=== PATIENT | male | born 1985 | race Caucasian/White ===

== ENCOUNTER 2024-10-28 15:06 | Emergency (ER) | payer BC ==
--- NOTE | 2024-10-28 15:47 | RAD REPORT ---
EXAM: CT brain without contrast HISTORY: Seizure COMPARISON: None TECHNIQUE: Multiple contiguous axial images were obtained and a CT of the brain without contrast.. Sagittal and coronal reconstruction performed. Automated exposure control, adjustment of the mA and/or kV according to patient size, and/or iterative reconstruction. Unless otherwise specified, incidental f indings do not require dedicated imaging follow-up FINDINGS: 3 cm low-density area right frontal lobe. It contains small area of increased density Ventricles are normal caliber No extra-axial fluid collection noted No significant hypodensity within the brain No fluid within the visualized sinuses or mastoids noted. IMPRESSION: 3 cm low-density area right frontal lobe could represent mass or infarction. It may contain a small a mount of blood. MRI of the brain with contrast recommended. Thelma Mcmahon of the emergency room was notified 3:41 PM September 28, 2024
[2024-10-28] MEDS ORDERED: LORazepam 2 MG/ML VIAL ONE (15:54)
[2024-10-28] MEDS ORDERED: NA CHLORIDE 0.9% 1,000 ML ONE ×2 (15:55→17:03)
[2024-10-28] MEDS ORDERED: LEVETIRACETAM 500 MG/5 ML VIAL IV ONE (15:55)
[2024-10-28] MEDS ORDERED: NA CHLORIDE 0.9% 100 ML ONE (15:55)
[2024-10-28 16:02] LABS: Absolute Eosinophils 0.2 K/uL (0-0.5); Absolute Monocytes 0.9 K/uL (0.1-1.3); Absolute Neutrophil 10.6 K/uL (1.8-8.0); Basophils % 0.3 % (0-1.3); Eosinophils % 1.6 % (0-4.4); Hematocrit 44.5 % (39.6-49.0); Hemoglobin 14.7 g/dL (13.6-17.9); Lymphocytes % 7.7 % (15.3-44.8); MCV 87.9 fL (80-100); MPV 8.4 fL (7.6-11.3); Neutrophils % 83.4 % (41.7-73.7); Nucleated RBC Absolute Count 0.1 (0-0); Nucleated Red Blood Cells % 0.8 % (0-0); Platelets 266 thou/uL (152-406); RBC Red Blood Cell Count 5.06 M/uL (4.33-5.43); Red Cell Distribution Width 13.7 % (12.1-15.2)
[2024-10-28 16:03] LABS: Urine Bilirubin NEGATIVE (Negative); Urine Blood Negative (Negative); Urine Clarity Clear (Clear); Urine Color Colorless (Yellow); Urine Glucose NEGATIVE (Negative); Urine Ketones NEGATIVE (Negative); Urine Microscopic Reflex YN NO UMIC; Urine Nitrite NEGATIVE (Negative); Urine Protein NEGATIVE (Negative); Urine Urobilinogen Normal (Normal)
[2024-10-28 16:08] LABS: PT Prothrombin Time 11.5 SECONDS (9.4-12.5); PTT, Activated Partial Thromb 27.2 SECONDS (24.3-36.9); Protime INR 1.03
[2024-10-28 16:10] LABS: Blood Morphology Comment NOT SEEN (NOT SEEN); Platelet Estimate ADEQ; White Blood Cell Scan OK (OK)
[2024-10-28 16:10] LABS: Barbiturates NEGATIVE (NEGATIVE); Benzodiazepines NEGATIVE (NEGATIVE); Cocaine NEGATIVE (NEGATIVE); METHAMPHETAM NEGATIVE (NEGATIVE); Methadone NEGATIVE (NEGATIVE); Opiates NEGATIVE (NEGATIVE); Phencyclidine NEGATIVE (NEGATIVE); THC Cannibis NEGATIVE (NEGATIVE)
--- NOTE | 2024-10-28 16:11 | EDPHYS ---
Physician Documentation [facility] Name: Ned Hebert Age: 39 yrs Sex: Male : 1985 Arrival Date: 10/28/2024 Time: 15:06 Bed 17 Private MD: ED Physician Wilton Hanson HPI: 10/28 15:51 This 39 yrs old Male presents to ER via EMS with complaints of Probable jody Seizure. 15:51 The patient presents after having a single isolated seizure, that lasted 1 minute(s). jody Character of seizure(s): Loss of consciousness: the patient experienced loss of consciousness, brief, Motor activity: generalized, shaking all over, Incontinence: none, Apnea: the patient did not experience apnea, Circulation: the patient did not experience evidence of pulse disturbance. Seizure onset: just prior to arrival. Context: the seizure(s) was witnessed, by family, son. Seizure Hx: the patient has no previous seizure history. Associated injury: The patient did not suffer any apparent associated injury. EMS care: none. Current symptoms: Currently, the patient is not experiencing any symptoms. The patient has not experienced similar symptoms in the past. Historical: - Allergies: 15:15 No Known Allergies; me1 - Home Meds: 15:15 None [Active]; me1 - PMHx: 15:15 None; me1 - PSHx: 15:15 None; me1 - Immunization history:: Adult Immunizations up to date. - Infectious Disease History:: Denies. - Social history:: Smoking status: Patient denies any tobacco usage or history of. ROS: 15:52 Constitutional: Negative for fever, chills, and weight loss, Eyes: Negative for injury, jody pain, redness, and discharge, ENT: Negative for injury, pain, and discharge, Neck: Negative for injury, pain, and swelling, Cardiovascular: Negative for chest pain, palpitations, and edema, Respiratory: Negative for shortness of breath, cough, wheezing, and pleuritic chest pain, Abdomen/GI: Negative for abdominal pain, nausea, vomiting, diarrhea, and constipation, Back: Negative for injury and pain, : Negative for injury, bleeding, discharge, and swelling, MS/Extremity: Negative for injury and deformity, Skin: Negative for injury, rash, and discoloration, Psych: Negative for depression, anxiety, suicide ideation, homicidal ideation, and hallucinations, Allergy/Immunology: Negative for hives, rash, and allergies, Endocrine: Negative for neck swelling, polydipsia, polyuria, polyphagia, and marked weight changes, Hematologic/Lymphatic: Negative for swollen nodes, abnormal bleeding, and unusual bruising, 15:52 Neuro: Positive for altered mental status, dizziness, seizure activity, POST ICTAL 25 MIN, Exam: 15:52 Constitutional: This is a well developed, well nourished patient who is awake, alert, jody and in no acute distress. Head/Face: Normocephalic, atraumatic. Eyes: Pupils equal round and reactive to light, extra-ocular motions intact. Lids and lashes normal. Conjunctiva and sclera are non-icteric and not injected. Cornea within normal limits. Periorbital areas with no swelling, redness, or edema. ENT: Nares patent. No nasal discharge, no septal abnormalities noted. Tympanic membranes are normal and external auditory canals are clear. Oropharynx with no redness, swelling, or masses, exudates, or evidence of obstruction, uvula midline. Mucous membranes moist. Neck: Trachea midline, no thyromegaly or masses palpated, and no cervical lymphadenopathy. Supple, full range of motion without nuchal rigidity, or vertebral point tenderness. No Meningismus. Chest/axilla: Normal chest wall appearance and motion. Nontender with no deformity. No lesions are appreciated. Cardiovascular: Regular rate and rhythm with a normal S1 and S2. No gallops, murmurs, or rubs. Normal PMI, no JVD. No pulse deficits. Respiratory: Lungs have equal breath sounds bilaterally, clear to auscultation and percussion. No rales, rhonchi or wheezes noted. No increased work of breathing, no retractions or nasal flaring. Abdomen/GI: Soft, non-tender, with normal bowel sounds. No distension or tympany. No guarding or rebound. No evidence of tenderness throughout. Back: No spinal tenderness. No costovertebral tenderness. Full range of motion. Skin: Warm, dry with normal turgor. Normal color with no rashes, no lesions, and no evidence of cellulitis. MS/ Extremity: Pulses equal, no cyanosis. Neurovascular intact. Full, normal range of motion., bilateral aka Neuro: Awake and alert, GCS 15, oriented to person, place, time, and situation. Cranial nerves II-XII grossly intact. Motor strength 5/5 in all extremities. Sensory grossly intact. Cerebellar exam normal. Normal gait. Psych: Awake, alert, with orientation to person, place and time. Behavior, mood, and affect are within normal limits. 15:52 ECG was reviewed by the Attending Physician. 16:24 ECG was reviewed by the Attending Physician. [facility] Vital Signs: 15:10 BP 137 / 90; Pulse 82; Resp 16; Temp 98.4; Pulse Ox 100% on R/A; me1 16:00 BP 147 / 83; Pulse 89; Resp 19; Pulse Ox 98% ; me1 17:00 BP 152 / 89; Pulse 104; Resp 18; Pulse Ox 98% ; me1 18:00 BP 158 / 83; Pulse 97; Resp 21; Temp 98.4; Pulse Ox 98% ; me1 [place] Coma Score: 15:15 Eye Response: spontaneous(4). Motor Response: obeys commands(6). Verbal Response: me1 oriented(5). Total: 15. MDM: 15:12 Medical Screening Exam initiated jody 16:18 Differential diagnosis: cerebral vascular accident, cardiac arrhythmia, seizure, TIA. [facility] Data reviewed: vital signs, nurses notes, lab test result(s), EKG, radiologic studies, CT scan, plain films. Consideration of Admission/Observation Escalation of care including admission/observation considered. I considered the following discharge prescriptions or medication management in the emergency department Medications were administered in the Emergency Department. See MAR. Independent interpretation of the following test(s) in the Emergency Department EKG: See my EKG interpretation above. Test considered but Not performed: MRI: MRI NOT DONE. Historians other than the Patient: EMS: EMS WELL INFORMED. Family Member: , DAD AND SON. Care significantly affected by the following chronic conditions: NONE , DAILY ETOH. Counseling: I had a detailed discussion with the patient and/or guardian regarding the historical points, exam findings, and any diagnostic results supporting the discharge/admit diagnosis, lab results, radiology results, the need to transfer to another facility, for higher level of care, [facility] does not immediately have the required specialist. 10/28 15:14 Order name: Acetaminophen; Complete Time: 16:39 [facility] 10/28 15:14 Order name: Basic Metabolic Panel; Complete Time: 16:39 [facility] 10/28 15:14 Order name: CBC with Diff; Complete Time: 16:18 [facility] 10/28 15:14 Order name: ETOH Level; Complete Time: 16:18 [facility] 10/28 15:14 Order name: Hepatic Function; Complete Time: 16:39 [facility] 10/28 15:14 Order name: PT-INR; Complete Time: 16:18 [facility] 10/28 15:14 Order name: Ptt, Activated; Complete Time: 16:18 [facility] 10/28 15:14 Order name: Salicylate; Complete Time: 16:39 [facility] 10/28 15:14 Order name: Urinalysis w/ reflexes; Complete Time: 16:18 [facility] 10/28 15:14 Order name: Urine Drug Screen; Complete Time: 16:18 [facility] 10/28 15:56 Order name: SARS-COV-2 Antigen Rapid; Complete Time: 16:57 bp 10/28 15:56 Order name: Flu; Complete Time: 16:57 bp 10/28 16:10 Order name: CBC Smear Scan; Complete Time: 16:18 EDMS 10/28 15:14 Order name: CT Head Brain wo Cont; Complete Time: 16:18 [facility] 10/28 15:14 Order name: EKG - Nurse/Tech; Complete Time: 17:31 [facility] 10/28 15:14 Order name: IV Saline Lock; Complete Time: 15:50 [facility] 10/28 15:14 Order name: Labs collected and sent; Complete Time: 15:50 [facility] 10/28 15:14 Order name: Suicide Screening ([place]); Complete Time: 15:50 [facility] 10/28 15:14 Order name: Seizure Precautions; Complete Time: 15:50 [facility] EC:24 Rate is 93 beats/min. Rhythm is regular. QRS [place] is Normal. MI interval is normal. QRS jody interval is normal. QT interval is normal. No Q waves. T waves are Normal. No ST changes noted. Clinical impression: Normal ECG and No evidence of ischemia. Interpreted by me. Reviewed by me. Administered Medications: 16:04 Drug: NS 0.9% IV 1000 ml IV at 1000 ml once; to be given as a bolus over 60 minutes me1 Route: IV; Rate: 1000 ml; Site: right antecubital; 17:12 Follow up: Response: No adverse reaction; IV Status: Completed infusion; IV Intake: me1 1000ml 16:04 Drug: Ativan IVP 2 mg IVP once Route: IVP; Site: right antecubital; me1 16:17 Follow up: Response: No adverse reaction me1 16:04 Drug: Keppra IV 1000 mg IV at per protocol once Route: IV; Rate: per protocol; Site: [facility] right antecubital; 16:17 Follow up: IV Status: Completed infusion me1 16:04 Drug: Keppra IV 1000 mg IV at per protocol once Route: IV; Rate: per protocol; Site: [facility] right antecubital; 16:16 Follow up: IV Status: Completed infusion me1 17:11 Drug: Banana Bag - (Multivitamin IV 1 amp, NS 0.9% IV 1000 ml, Thiamine IV 100 mg, me1 foLIC Acid IVPB 1 mg) IV at 125 ml/hr once Route: IV; Rate: 125 ml/hr; Site: right antecubital; 18:10 Follow up: IV Status: Completed infusion; Infusion continued upon transfer me1 17:12 Drug: Thiamine IV 100 mg IV at per protocol once Route: IV; Rate: per protocol; Site: [facility] right antecubital; 17:15 Follow up: Response: No adverse reaction; IV Status: Completed infusion me1 Disposition Summary: 10/28/24 16:10 Transfer Ordered Notes: Transfer Location: [facility] jody Reason: Higher level of care jody Condition: Fair jody Problem: new jody Symptoms: have improved jody Accepting Physician: to [facility](10/28/24 18:10) me1 Diagnosis - Abnormal findings on diagnostic imaging of skull and head, not elsewhere classified jody - 3 cm LOW DENSITY MASS/ INFARCTION RIGHT FRONTAL LOBE - Other seizures - NEW ONSET TONIC - CLONIC jody - Alcohol abuse, uncomplicated jody Forms: - Medication Reconciliation Form jody - SBAR form jody Signatures: Dispatcher [employer] EDWilton Arevalo MD MD cha Eddleman, Michelle, RN RN me1 Corrections: (The following items were deleted from the chart) 15:15 15:15 ACETAMINOPHEN+C.LAB.BRZ ordered. EDMS EDMS 15:15 15:15 BASIC METABOLIC PANEL+C.LAB.BRZ ordered. EDMS EDMS 15:15 15:15 CBC+H.LAB.BRZ ordered. EDMS EDMS 15:15 15:15 ETHANOL+C.LAB.BRZ ordered. EDMS EDMS 15:15 15:15 HEPATIC FUNCTION+C.LAB.BRZ ordered. EDMS EDMS 15:15 15:15 PROTIME (+INR)+COAG.LAB.BRZ ordered. EDMS EDMS 15:15 15:15 PTT, ACTIVATED+COAG.LAB.BRZ ordered. EDMS EDMS 15:15 15:15 SALICYLATE+C.LAB.BRZ ordered. EDMS EDMS 15:15 15:15 Urinalysis+U.LAB.BRZ ordered. EDMS EDMS 15:15 15:15 URINE DRUG SCREEN+UC.LAB.BRZ ordered. EDMS EDMS 15:15 15:15 Head Brain Wo Cont+CT.RAD.BRZ ordered. EDMS EDMS 16:21 16:10 to [facility] jody jody 18:10 16:21 to [facility] jody me1
--- NOTE | 2024-10-28 16:11 | ER ---
Nurse's Notes [facility] Name: Ned Hebert Age: 39 yrs Sex: Male : 1985 Arrival Date: 10/28/2024 Time: 15:06 Bed 17 Private MD: Diagnosis: Abnormal findings on diagnostic imaging of skull and head, not elsewhere classified-3 cm LOW DENSITY MASS/ INFARCTION RIGHT FRONTAL LOBE;Other seizures-NEW ONSET TONIC - CLONIC;Alcohol abuse, uncomplicated Presentation: 10/28 15:10 Chief complaint: EMS states: toned out for seizure. Patient was sitting and eating at a [facility] restaurant when he began to seize, he did lean forward, hitting his bottom lip on the table. Was eased to the ground without fall. Post-ictal for about 30-40 minutes per EMS. Patient did take paxlovid x 3 doses about a week ago because his had covid. No seizure history. Coronavirus screen: Vaccine status: Patient reports receiving the 1st dose of the Covid vaccine. Ebola Screen: No symptoms or risks identified at this time. Initial Sepsis Screen: Does the patient meet any 2 criteria? No. Patient's initial sepsis screen is negative. Does the patient have a suspected source of infection? No. Patient's initial sepsis screen is negative. Risk Assessment: Do you want to hurt yourself or someone else? Patient reports no desire to harm self or others. Onset of symptoms was October 28, 2024 at 14:00. 15:10 Method Of Arrival: EMS: [place] [id number] 15:10 Acuity: GA 3 wv1 15:10 Care prior to arrival: Medication(s) given: LR 500 ml IV initiated. 20 GA, in the left wv1 wrist. Triage Assessment: 15:15 General: Appears comfortable, well groomed, well developed, well nourished, Behavior is me1 calm, cooperative, appropriate for age. Pain: Denies pain. EENT: No signs and/or symptoms were reported regarding the EENT system. Neuro: Level of Consciousness is awake, alert, obeys commands, Oriented to person, place, time, situation, Appropriate for age Seizure activity reported prior to arrival. Cardiovascular: Capillary refill < 3 seconds Patient's skin is warm and dry. Respiratory: Airway is patent Respiratory effort is even, unlabored, Respiratory pattern is regular, symmetrical. GI: No signs and/or symptoms were reported involving the gastrointestinal system. : No signs and/or symptoms were reported regarding the genitourinary system. Derm: Skin is intact, is healthy with good turgor, Skin is pink, warm \T\ dry. Musculoskeletal: No signs and/or symptoms reported regarding the musculoskeletal system. Historical: - Allergies: 15:15 No Known Allergies; me1 - Home Meds: 15:15 None [Active]; me1 - PMHx: 15:15 None; me1 - PSHx: 15:15 None; me1 - Immunization history:: Adult Immunizations up to date. - Infectious Disease History:: Denies. - Social history:: Smoking status: Patient denies any tobacco usage or history of. Screenin:16 [facility] ED Fall Risk Assessment (Adult) History of falling in the last 3 months, me1 including since admission No falls in past 3 months (0 pts) Confusion or Disorientation No (0 pts) Intoxicated or Sedated No (0 pts) Impaired Gait No (0 pts) Mobility Assist Device Used No (0 pt) Altered Elimination No (0 pt) Score/Fall Risk Level 0 - 2 = Low Risk Maintained a safe environment, Provided non-skid footwear, Hourly rounding (assess needs \T\ fall precautionary measures) done. Abuse screen: Denies threats or abuse. Nutritional screening: No deficits noted. Tuberculosis screening: No symptoms or risk factors identified. Assessment: 15:16 General: See triage assessment.. me1 Vital Signs: 15:10 BP 137 / 90; Pulse 82; Resp 16; Temp 98.4; Pulse Ox 100% on R/A; me1 16:00 BP 147 / 83; Pulse 89; Resp 19; Pulse Ox 98% ; me1 17:00 BP 152 / 89; Pulse 104; Resp 18; Pulse Ox 98% ; me1 18:00 BP 158 / 83; Pulse 97; Resp 21; Temp 98.4; Pulse Ox 98% ; me1 [place] Coma Score: 15:15 Eye Response: spontaneous(4). Motor Response: obeys commands(6). Verbal Response: me1 oriented(5). Total: 15. ED Course: 15:10 Patient arrived in ED. me1 15:12 Wilton Hanson MD is Attending Physician. [facility] 15:15 Triage completed. me1 15:15 Arm band placed on Patient placed in an exam room. me1 15:16 Patient has correct armband on for positive identification. Bed in low position. Call me1 light in reach. Side rails up X2. Seizure precautions initiated. Provided Education on: POC. Verbalized understanding.. 15:16 No provider procedures requiring assistance completed. Maintain EMS IV. Dressing me1 intact. Good blood return noted. Site clean \T\ dry. Gauge \T\ site: 20g L wrist. 15:26 CT Head Brain wo Cont In Process Unspecified. EDMS 15:28 Monalisa Evangelista, RN is Primary Nurse. me1 15:50 Acetaminophen Sent. me1 15:50 Basic Metabolic Panel Sent. me1 15:50 CBC with Diff Sent. me1 15:50 ETOH Level Sent. me1 15:50 Hepatic Function Sent. me1 15:50 PT-INR Sent. me1 15:50 Ptt, Activated Sent. me1 15:50 Salicylate Sent. me1 15:50 Urinalysis w/ reflexes Sent. me1 15:50 Urine Drug Screen Sent. me1 16:04 Initial lab(s) drawn, by wv, sent to lab. Inserted saline lock: 22 gauge in right wv1 antecubital area, using aseptic technique. 16:17 Flu Sent. me1 16:17 SARS-COV-2 Antigen Rapid Sent. me1 16:17 COVID swab sent to lab. Flu and/or RSV swab sent to lab. me1 17:00 received acceptance with Kobi [facility] for [facility] ([id number]) with accepting bc6 Dr. Teto Smart. 17:30 Patient transferred, IV remains in place. me1 17:31 EKG done, by ED staff, reviewed by Wilton Hanson MD. me1 17:34 mary with [facility] accepted transfer. 6 Administered Medications: 16:04 Drug: NS 0.9% IV 1000 ml IV at 1000 ml once; to be given as a bolus over 60 minutes me1 Route: IV; Rate: 1000 ml; Site: right antecubital; 17:12 Follow up: Response: No adverse reaction; IV Status: Completed infusion; IV Intake: me1 1000ml 16:04 Drug: Ativan IVP 2 mg IVP once Route: IVP; Site: right antecubital; me1 16:17 Follow up: Response: No adverse reaction me1 16:04 Drug: Keppra IV 1000 mg IV at per protocol once Route: IV; Rate: per protocol; Site: [facility] right antecubital; 16:17 Follow up: IV Status: Completed infusion me1 16:04 Drug: Keppra IV 1000 mg IV at per protocol once Route: IV; Rate: per protocol; Site: [facility] right antecubital; 16:16 Follow up: IV Status: Completed infusion me1 17:11 Drug: Banana Bag - (Multivitamin IV 1 amp, NS 0.9% IV 1000 ml, Thiamine IV 100 mg, me1 foLIC Acid IVPB 1 mg) IV at 125 ml/hr once Route: IV; Rate: 125 ml/hr; Site: right antecubital; 18:10 Follow up: IV Status: Completed infusion; Infusion continued upon transfer me1 17:12 Drug: Thiamine IV 100 mg IV at per protocol once Route: IV; Rate: per protocol; Site: [facility] right antecubital; 17:15 Follow up: Response: No adverse reaction; IV Status: Completed infusion me1 Medication: 15:16 VIS not applicable for this client. me1 Intake: 17:12 IV: 1000ml; Total: 1000ml. wv1 Outcome: 16:10 ER care complete, transfer ordered by MD. vera 17:30 Transferred by ground EMS to [facility], Note: Report given to obdulio Lovelace RN 17:30 Condition: stable 17:30 Instructed on the need for transfer, 18:10 Patient left the ED. wv1 Signatures: Dispatcher [employer] Wilton Moulton MD MD cha [place], Breana [facility] Monalisa Evangelista RN RN me1
[2024-10-28 16:21] LABS: ALT/SGPT 38 U/L (16-61); AST/SGOT 14 U/L (15-37); Albumin 3.5 g/dL (3.4-5.0); Alkaline Phosphatase 54 U/L (45-117); Anion Gap 9.9 mEq/L (5.0-15.0); BUN Blood Urea Nitrogen 16 mg/dL (7-18); Bicarbonate 26 mEq/L (21-32); Bilirubin Direct < 0.2 mg/dL (0-0.2); Bilirubin Indirect, Calculated 0.1 mg/dL (0.2-0.8); Bilirubin Total 0.3 mg/dL (0.2-1.0); Globulin 3.5 g/dL (2.3-3.5); Glomerular Filtration Rate 88 ml/min (=/>90); Glucose Level 88 mg/dL (74-106); Potassium 3.9 mEq/L (3.5-5.1); Sodium Level 136 mEq/L (136-145)
[2024-10-28 16:44] LABS: SARS-CoV-2 Antigen CONTROL BLUE LINE VIS/BG OK; SARS-CoV-2 Antigen Rapid Res Negative (Negative)
[2024-10-28] MEDS ORDERED: MULTIVITAMINS 10 ML VIAL (INJ) IV ONE (17:02)
[2024-10-28] MEDS ORDERED: THIAMINE 200 MG/2 ML INJ ONE (17:02)
[2024-10-28] MEDS ORDERED: FOLIC ACID 5 MG/ML VIAL ONE (17:03)
[2024-10-28 18:39] VITALS: TEMP 98.4
[2024-10-28 18:40] VITALS: O2SAT 98
[2024-10-28 18:44] VITALS: BP 158/83
--- NOTE | 2024-10-29 14:39 | EKG ---
Test Date: 2024-10-28 Test Time: 16:11:37 Costumed Character Entertainer: MEASUREMENT RESULTS: Intervals: Rate: 93 SD: 130 QRSD: 92 QT: 352 QTc: 437 [place]: P: 30 SD: 130 QRS: 37 T: 11 INTERPRETIVE STATEMENTS: Normal sinus rhythm Normal ECG No previous ECG available for comparison Electronically Signed On 10-29-24 14:38:32 CLEANER FURNITURE by Hakan Aparicio
--- NOTE | 2024-11-01 13:47 | EKG ---
Test Date: 2024-10-28 Test Time: 16:29:20 Global Account Director: MEASUREMENT RESULTS: Intervals: Rate: 73 NC: 168 QRSD: 132 QT: 398 QTc: 438 [place]: P: 54 NC: 168 QRS: -26 T: 55 INTERPRETIVE STATEMENTS: Normal sinus rhythm Right bundle branch block Anterior infarct, age undetermined Abnormal ECG Compared to ECG 10/28/2024 16:11:37 Right bundle-branch block now present Myocardial infarct finding now present Electronically Signed On 11-01-24 13:38:53 PARAEDUCATOR by Hakan Aparicio
== END 2024-10-28 18:10 | disposition short-term general hospital (02) ==
LOC: ER 15:06
DX: I63.89 Other cerebral infarction (principal); G40.89 Other seizures; F10.10 Alcohol abuse, uncomplicated; Z11.52 Encounter for screening for COVID-19
CPT/HCPCS: 96365; 96361; 93005 ×2; 85025; 80048; 36415; 85610; 80076; 85730; 81003; 80307; 87804 ×2; 70450; 96375; 99285; 80143; 80179; 82077; 87811; J3411; J1953; J7030 ×2